=== PATIENT | male | born 1970 | race Two or more races ===

== ENCOUNTER 2024-06-12 22:41 | Emergency (ER) | payer MEDICAID, SELFPAY ==
[2024-06-12 22:41] VITALS: BMI 32.3
[2024-06-12 22:49] VITALS: BP 162/98; PULSE 72; RESP 18; TEMP 37.3; O2SAT 95
--- NOTE | 2024-06-12 22:56 | XR_ITS ---
Examination: CT cervical spine without contrast 2-D sagittal reconstructions 2-D coronal reconstructions 3-D reconstructions. Exam date and time:June 12, 2024 11:19 PM Indications: Patient fell off a truck 2 hours ago with injury to the neck, neck pain CTDI:vol (mGy) 15.06 DLP: (mGycm) 423 Technique: Multiple 2 mm axial sections of the cervical spine have been obtained. The coronal and sagittal reconstructions have been obtained. 3-D reconstructions have been obtained. Low dose protocols were performed. One or more of the following dose reduction techniques were used; automated exposure control, adjustment of the mA and/or KV according to patient size, use of iterative reconstruction technique. Findings: Axial sections demonstrate intact base of the skull. C1 exhibit satisfactory relationship to the odontoid. No acute cervical vertebral body fracture seen. Alignment posterior spinous processes satisfactory. Impression: No acute cervical fracture.
--- NOTE | 2024-06-12 22:56 | XR_ITS ---
Examination: CT brain head without contrast. 2-D sagittal coronal reconstructions Date and time of exam:June 12, 2024 1118 hrs. Indications: Patient fell off a back of the tract today with injury to the head, head pain CTDI: vol (mGy):55 DLP: (mGycm):1175 Technique: Multiple CT axial sections of the brain have been obtained, 5 mm slice thickness. Contrast has not been administered. 2-D sagittal, coronal reconstructions have been obtained Low dose protocols were performed. One or more of the following dose reduction techniques were used; automated exposure control, adjustment of the mA and/or KV according to patient size, use of iterative reconstruction technique. Findings: No significant ventricular enlargement. Intra-axial or extra-axial hemorrhage density is not seen. No mass effect or midline shift Basal cisterns are not remarkable. Fourth ventricle is midline. Cranial vault intact. Impression: Negative for acute hemorrhage, mass effect or midline shift
--- NOTE | 2024-06-12 22:56 | XR_ITS ---
Examination: PA lateral chest 2 views Technique: Upright PA lateral chest 2 views Exam date and time: June 12, 2024 1104 hrs. Comparison December 20, 2022 Indications: Chest pain today. Findings: Normal heart size Mild ectasia thoracic aorta. No pneumonia or pulmonary edema On the lateral view possible 17 mm pulmonary nodule, which may be in the left perihilar region Impression: No pneumonia or pulmonary edema On the lateral view possible 17 mm pulmonary nodule overlying the cardiac contour, recommend AP lordotic chest follow-up
--- NOTE | 2024-06-12 22:57 | PD.EDRME ---
Rapid Medical Screening Exam RME Arrival date/time: 06/12/24 22:41 54-year-old male presents emergency department complaining of head and neck pain after falling off back of tailgate from truck. Chief Complaint: Neck Pain/Injury Time Seen by Provider: 06/12/24 22:51 Vital signs: Vital Signs Temperature 99.1 F 06/12/24 22:49 Pulse Rate 72 06/12/24 22:49 Respiratory Rate 18 06/12/24 22:49 Blood Pressure 162/98 H 06/12/24 22:49 Pulse Oximetry (%) 95 06/12/24 22:49 Oxygen Delivery Method Room Air 06/12/24 22:49 Vital signs reviewed by provider: Yes
--- NOTE | 2024-06-13 00:21 | PD.EDNECK ---
ED Neck Injury Pain RME/HPI General Chief Complaint: Neck Pain/Injury Stated Complaint: NECK PAIN S/P FALL Time Seen by Provider: 06/12/24 22:51 Source: patient Arrival date/time: 06/12/24 22:41 54-year-old male presents emergency department complaining of head and neck pain after falling off back of tailgate from truck. Patient reports also suffered abrasion to top of scalp from fall. Patient denies any LOC. Patient reports is up-to-date with tetanus vaccine. Mode of arrival: ambulatory Limitations: no limitations RME / HPI RME / HPI Narrative: 06/12/24 22:41 54-year-old male presents emergency department complaining of head and neck pain after falling off back of tailgate from truck. Related Data Home Medications ?Medication ?Instructions ?Recorded ?Confirmed lisinopril 40 mg tablet 40 mg PO QDAY #0 tabs 02/13/15 12/10/23 Previous Rx's ?Medication ?Instructions ?Recorded acetaminophen 650 mg 650 mg PO Q8H PRN fever or pain 07/22/21 tablet,extended release #30 tabs ibuprofen 600 mg tablet 600 mg PO Q8H PRN fever or pain 07/22/21 #30 tabs neomycin-bacitracn Zn-polymyx 3.5 1 applicatio topical BID #15 grams 07/22/21 mg-400 unit-5,000 unit/gram top oint (Triple Antibiotic) celecoxib 200 mg capsule 200 mg PO bid #60 caps 09/14/23 meloxicam 7.5 mg tablet 7.5 mg PO QDAY #10 tabs 11/09/23 bacitracin 500 unit/gram topical 1 applic topical Q8H #14 grams 06/13/24 ointment Allergies Allergy/AdvReac Type Severity Reaction Status Date / Time No Known Allergies Allergy Verified 06/12/24 22:44 Review of Systems Review of Systems Systems Reviewed: All systems reviewed, normal except as documented Constitutional Constitutional: Reports system reviewed and no additional complaints, except as documented, Denies body ache(s), Denies chills, Denies fever(s) and Reports headache(s) Eyes Eyes: Reports system reviewed and no additional complaints, except as documented and Denies change in vision ENT Ears, Nose, Mouth, and Throat: Reports system reviewed and no additional complaints, except as documented, Denies disequilibrium, Denies dizziness, Reports headache(s), Reports neck pain, Denies sore throat and Denies vertigo Cardiovascular Cardiovascular: Reports system reviewed and no additional complaints, except as documented, Denies chest pain and Denies dyspnea Respiratory Respiratory: Reports system reviewed and no additional complaints, except as documented, Denies chest congestion, Denies cough and Denies dyspnea Gastrointestinal Gastrointestinal: Reports system reviewed and no additional complaints, except as documented, Denies abdominal pain, Denies nausea and Denies vomiting Musculoskeletal Musculoskeletal: Reports system reviewed and no additional complaints, except as documented, Denies abnormal gait, Reports arthralgias and Reports neck pain Integumentary/Breasts Skin/Breast: Reports system reviewed and no additional complaints, except as documented, Denies erythema, Denies rash and Denies wounds Neurologic Neurologic: Reports system reviewed and no additional complaints, except as documented, Denies abnormal gait, Denies disequilibrium, Denies dizziness, Reports headache(s) and Denies vertigo Past Medical History Past Medical History NEUROLOGIC: Negative Neurological Disorders or Seizures CARDIAC: Positive Cardiac Disorders and Hypertension; Negative Congestive Heart Failure RESPIRATORY: Negative Chronic Obstructive Pulmonary Disease (COPD) GASTROINTESTINAL: Negative Gastrointestinal Disorders GENITOURINARY: Negative Genitourinary Disorders or Renal Disease MUSCULOSKELETAL: Negative Musculoskeletal Disorders ENDOCRINE: Negative Endocrine Disorders, Diabetes Mellitus Type 1 or Diabetes Mellitus Type 2 HEMATOLOGIC: Negative Blood Disorders OTHER HISTORY: Negative Blood Transfusions, Blood Transfusion Reaction, Anesthesia Reactions or Cancer Family History FAMILY HISTORY: Positive Family Cancer Social History SMOKING STATUS: Never smoker ED Exam General Limitations: Present no limitations General appearance: Present alert and in no apparent distress Head Head exam: Present atraumatic Expanded Head Exam Head exam physical: Present abrasion Head image: 1. Superficial abrasion Eye Eye exam: Present normal appearance, PERRL and EOMI ENT ENT exam: Present normal exam, normal oropharynx and mucous membranes moist Neck Neck exam: Present normal inspection, full ROM and trachea midline Chest Chest inspection: Present normal inspection and symmetric chest wall rise Respiratory Respiratory exam: Present normal lung sounds bilaterally Cardiovascular Cardiovascular exam: Present regular rate, normal rhythm and normal heart sounds Abdominal Exam Abdominal exam: Present soft and normal bowel sounds Extremities Exam Extremities exam: Present normal inspection and full ROM Back Exam Back exam: Present normal inspection and full ROM Neurological Exam Neurological exam: Present alert, oriented X3, CN II-XII intact and normal gait Psychiatric Psychiatric exam: Present normal affect and normal mood Skin Skin exam: Present warm, dry, intact and normal color Course Quality Measures none Orders Category Date Time Status CT cervical spine wo con Stat Exams 06/12/24 22:[address] head/brain wo con Stat Exams 06/12/24 22:56 Completed XR chest 2V Stat Exams 06/12/24 22:56 Completed Vital Signs Vital signs: Vital Signs Temperature 99.1 F 06/12/24 22:49 Pulse Rate 72 06/12/24 22:49 Respiratory Rate 18 06/12/24 22:49 Blood Pressure 162/98 H 06/12/24 22:49 Pulse Oximetry (%) 95 06/12/24 22:49 Oxygen Delivery Method Room Air 06/12/24 22:49 95% room air within normal limits Neck Pain MDM Narrative MDM Narrative:: 54-year-old male presents emergency department complaining of head and neck pain after falling off back of tailgate from truck. Patient reports also suffered abrasion to top of scalp from fall. Patient denies any LOC. CT of head and neck were unremarkable. Chest x-ray was unremarkable. Patient has superficial abrasion to top of scalp. Patient discharged on bacitracin cream to apply and instructed to have follow-up with primary care provider upon discharge and return to emergency department for any worsening symptoms or as needed. Patient data External records reviewed:: [facility] previous records Clinical information provided by:: patient Social determinants that could affect healthcare access:: none Patient has the following chronic illnesses:: See chart How is presenting disease/condition affected by chronic disease/condition?: uneffected by Evaluation data The following diagnostics were reviewed and interpreted by me:: radiology exam(s) Lab and/or radiology exams considered but not ordered:: Ordered Interpretation Summary: Interpreted by me Medications / Prescriptions Medications or Prescriptions considered but not ordered:: N/A Medication administrations:: N/A Consultations Consultation(s) initiated? (list below): No Diagnosis Neck Differential Diagnosis: whiplash injury to neck, closed subluxation of cervical spine and strain of neck muscle Most likely diagnosis given after review of the tests above:: Abrasion of scalp Fall Admission Indicated Admission indicated?: not indicated Admission Request Was there a request for admission?: No Disposition Plan Disposition Plan: Discharge Discharge Attestation Discharge Attestation: The patient and all family members were given an opportunity to ask questions and understood the discharge instructions. Discharge instructions specifically effects, indications for sooner follow up or return to the emergency department, and the expected course of current diagnosis. Patient condition: Stable Discharge Plan Plan Patient Disposition: HOME (Self Care) Disposition Comment: Stable Prescriptions/Referrals Prescriptions/Med Rec: New bacitracin 500 unit/gram ointment 1 applic topical Q8H Qty: 14 0RF No Action celecoxib 200 mg capsule 200 mg PO bid Qty: 60 2RF meloxicam 7.5 mg tablet 7.5 mg PO QDAY Qty: 10 0RF lisinopril 40 MG tablet 40 mg PO QDAY Qty: 0 acetaminophen 650 mg tablet extended release 650 mg PO Q8H PRN (Reason: fever or pain) Qty: 30 0RF Rx Instructions: swallow whole; do not chew/break/dissolve/open Triple Antibiotic 3.5mg-400 unit- 5,000 unit/gram ointment 1 applicatio TOPICAL BID Qty: 15 0RF ibuprofen 600 mg tablet 600 mg PO Q8H PRN (Reason: fever or pain) Qty: 30 0RF Referrals: Arnulfo Weber MD [Primary Care Provider] - In 1 week Problem List Clinical Impression: Abrasion of scalp, Fall Patient/Caregiver Discharge Instructions Education Materials: First Aid: Head Injuries, ED Abrasions Additional Instructions: Wash abrasion with warm water and soap. Apply medication as prescribed. Follow-up with primary care provider in 2 to 3 days. Return to emergency department for any worsening symptoms or as needed. Print Language: Tristanian Stand Alone Forms: Princess Award Info., Patient Portal Info Letter PA/WILLIE Supervising Physician PA/WILLIE Supervising Physician: Dr. Hardin
== END 2024-06-13 00:33 | disposition home or self-care (01) ==
PROVIDERS: Emergency Provider Emergency Medicine; PCP Family Medicine
DX: S00.01XA Abrasion of scalp, initial encounter (principal); S19.9XXA Unspecified injury of neck, initial encounter; R07.9 Chest pain, unspecified; W17.89XA Other fall from one level to another, initial encounter; Y92.812 Truck as the place of occurrence of the external cause
CPT/HCPCS: 70450; 71046; 72125; 99284

== ENCOUNTER → 2024-07-28 | Outpatient (CLI) | payer MEDICAID, SELFPAY ==
--- NOTE | 2024-07-28 08:00 | XR_ITS ---
MRI shoulder, left, without contrast. Date and time: July 28, 2024 0759 hours INDICATIONS: Left shoulder pain beginning 7 months ago, prior shoulder surgery 2013 Technique: Multiple axial, sagittal and coronal sections of the shoulder have been obtained. Siemens high-resolution 1.5 Mae MRI scanner is utilized. Axial fat-suppressed sections, TR 2350, TE 18 T2-weighted coronal fat-saturated images, TR 3500, TE 7100 T1-weighted coronal images, TR 500, TE 15 T2-weighted sagittal fat-saturated images, TR 3500, TE 57 T1-weighted sagittal sections, TR 504, TE 13. Findings: Severe magnetic susceptibility artifacts are present surrounding the humeral head Findings are quite suspicious for 3 cm full-thickness rotator cuff tear No labral tear is noted Subscapularis insertion is intact. Subscapularis bursa is not seen. Long head of the biceps is in the bicipital groove. No definite tear of the biceps superior labral anchor is seen. Retraction of the musculotendinous junction of the rotator cuff is not seen . Tendinosis pattern is moderate. Distance between the acromium and humeral head is 3 mm Atrophy of the supraspinatus muscle is severe. Atrophy of the infraspinatus muscle is moderate. Sagittal sections demonstrate a horizontal acromion. Acromioclavicular joint demonstrates moderate osteoarthritis. Osacromiale is not identified. Labral margins appear intact. Bony glenoid fossa on the sagittal sections does not demonstrate osseous defect. Occult fracture or area of avascular necrosis is not seen. Acromioclavicular joint separation is not visible. Defect in the posterolateral margin of the humeral head is not seen Impression: Severe magnetic susceptibility artifacts about the humeral head Recommend this patient return for MR arthrography followed by post intra-articular MR contrast images of the shoulder to confirm large full-thickness rotator cuff tear
--- NOTE | 2024-07-28 08:30 | XR_ITS ---
Examination: MRI left humerus, without contrast Date and time of exam: July 28, 2024 0759 hours INDICATIONS: Left shoulder and upper pain beginning 7 months ago, history prior shoulder surgery and tendon repair Technique: Multiple axial sagittal and coronal images of the left humerus have been obtained with the Siemens high-resolution 1.5 Mae MRI scanner. Images obtained include T2-weighted fat-suppressed sagittal sections, TR 3500, TE 46, T2 weighted coronal fat suppressed images, TR 3050, TE 84, T2-weighted transverse fat suppressed images, TR 3260, TE 63, proton density transverse images, TR 4720 TE 46, and T1 weighted coronal images, TR 560, TE 13. Findings: Long head of the biceps in the bicipital groove Numerous magnetic susceptibility artifacts adjacent to the humeral head Also extensive artifacts along the entire lateral margin of the humerus intact arm No definite retraction of the long head of the biceps although these images do not extend to the elbow and radial tuberosity IMPRESSION: The entire study is severely degraded by artifacts at the level of the humeral head along the entire humeral shaft Long head of the biceps is in the bicipital groove on the upper images Consider MRI elbow follow-up to confirm normal insertion of the long head of the biceps into the radial tuberosity
== END | disposition home or self-care (01) ==
PROVIDERS: PCP Family Medicine; Referring Provider Internal Medicine; Visit Provider Internal Medicine
DX: M25.812 Other specified joint disorders, left shoulder (principal); S46.212S Strain of muscle, fascia and tendon of other parts of biceps, left arm, sequela; X58.XXXS Exposure to other specified factors, sequela
CPT/HCPCS: 73218; 73221

== ENCOUNTER 2024-12-07 14:46 | Outpatient (AMB) | payer MEDICAID, SELFPAY ==
[2024-12-07 16:07] VITALS: BP 131/81; PULSE 72; RESP 18; TEMP 36.7; O2SAT 98; BMI 31.8
--- NOTE | 2024-12-07 16:07 | ORTHONT_ITS ---
Vital signs 12/07/24 16:07 Height 1.73 m Height Method Stated Weight 95.254 kg Weight Measurement Method Standing Scale BMI 31.8 BP 131/81 H Blood Pressure Source Automatic Cuff Blood Pressure Location Left Upper Arm Position Sitting Respiration 18 Pulse 72 Pulse Source Monitor Temp 98.1 F Temp Source Temporal Artery Scan Pulse Oximetry (%) 98 Oxygen Delivery Method Room Air Med/Allergies Allergies & Medications Allergies No Known Allergies Allergy (Verified 12/07/24 16:08) Medication Reconciliation lisinopril 40 mg tablet 40 mg PO QDAY #0 tabs 02/13/15 [History Confirmed 12/07/24] acetaminophen 650 mg tablet,extended release 650 mg PO Q8H PRN fever or pain #30 tabs 07/22/21 [Rx Confirmed 12/07/24] ibuprofen 600 mg tablet 600 mg PO Q8H PRN fever or pain #30 tabs 07/22/21 [Rx C onfirmed 12/07/24] neomycin-bacitracn Zn-polymyx 3.5 mg-400 unit-5,000 unit/gram top oint (Triple Antibiotic) 1 applicatio topical BID #15 grams 07/22/21 [Rx Confirmed 12/07/24] celecoxib 200 mg capsule 200 mg PO bid #60 caps 09/14/23 [Rx Confirmed 12/07/24] bacitracin 500 unit/gram topical ointment 1 applic topical Q8H #14 grams 06/13/24 [Rx Confirmed 12/07/24] meloxicam 7.5 mg tablet 7.5 mg PO QDAY #60 tabs 12/07/24 [Rx Confirmed 12/07/24] Exam Exam Patient is in no acute distress and is cooperative with the examination today. Breathing is nonlabored. In no respiratory distress. Patient has no paraspinal tenderness. Spinal deformity [cannot] be appreciated. The gait of the patient is [nonantalgic] Bilateral extremities were evaluated and demonstrates sensation intact to light touch. Palpable pedal pulses are present. No significant edema is present. Bilateral knees were examined and the patient has full strength and range of motion.. The left hip was examined. Patient was able to flex to 90 degrees, adduct to 30 degrees, abduct to 40 degrees, internally rotate to 20 degrees, and externally rotate to 20 degrees. Patient has a negative logroll. Stincfield is negative. The patient is nontender diffusely to touch. The right hip was examined. Patient was able to flex to [90] degrees, adduct to [30] degrees, abduct to [40] degrees, internally rotate to [20] degrees, and externally rotate to [20] degrees. Patient has a Positivelogroll. The stinchfield is [negative]. X-rays demonstrate moderate osteoarthritis of the right hip And mild arthritis of the left hip Assessment and Plan Problem List (1) Unilateral primary osteoarthritis, right hip: Status: Acute Plan: guera is a 53-year-old male with moderate right hip osteoarthritis. We discussed nonoperative options. The pain is starting to bother him. We discussed anti-inflammatories, and injections. Did well with the previous cortisone injections and would like new ones. We will order cortisone injections as he received almost a year relief with the last bilateral hip intra-articular injections (2) Right hip pain: Status: Acute Office Procedures GNS Level of Care Nursing/Assessment Patient Status: Established Patient Nursing Assessment/Reassesment: Medication Reconciliation, Update PMH in EMR and Vital Signs Coordination of Care: Complex Care and Chronic Disease 1-5, Education Complex Pt/Fam, Consent,records obtained, informed consent, Results/Orders obtained and Staff clarify orders Established Patient Charge Established Patient Point Assignment: 95 Established Patient Point Charge: EP Level 3 (80-115) MA Intake Visit Data Collection New Patient or Established: Established Patient (seen at [facility] within 3 years) Reason for Visit:: FOLLOW UP Seen by Clinical Staff ONLY (RN/MA): No PCP or OBGYN visit in last 3 months: Yes Hx Now: No Do You Feel Safe at Home: Yes Authorities Contacted: N/A Questionairres Past Medical History Past Medical History Have you ever been diagnosed with any of the following: Neurological Problems Seizures: No Cardiology Problems Congestive Heart Failure: No Hypertension: Yes Respiratory Problems Chronic Obstructive Pulmonary Disease (COPD): No Smoking: No Smoking Exposure: No Genital/Urinary Problems Renal Disease: No Endocrine Problems Diabetes Mellitus Type 1: No Diabetes Mellitus Type 2: No Other Problems Blood Transfusions: No Blood Transfusion Reaction: No Anesthesia Reactions: No Cancer: No Subjective Visit Visit for: follow up visit and hip Immunization / Flu Flu Vaccine in the Last 12 Months: No Flu Vaccine Exclusion Criteria: No Exclusion Criteria History of Present Illness Chief complaint: Bilateral hip arthritis Patient is a 53-year-old male with right hip pain that is in the groin and radiates to the knee. We injected him approximately 1 year ago with interventional radiology. He reports that this took away the pain completely. He is doing well with the weight new injections today as it wore off 1 week ago. We will order bilateral hip injections Pain Pain level (0-10): 7 Pain duration: ON AND OFF Pain location: inside (medial) and anterior Pain quality: sharp, dull and aching Pain timing: night and increases with activity Associated signs & symptoms: stiffness Ambulatory data Ambulatory device: none Treatments Improvement with previous injections: No Improvement with PT: No Improvement with NSAIDS: no Review of Systems Review of Systems: All systems negative unless otherwise noted in HPI.
== END 2024-12-07 16:19 | disposition home or self-care (01) ==
PROVIDERS: PCP Family Medicine; Referring Provider Family Medicine; Supervising Provider Orthopaedic Surgery Adult Reconstructive Orthopaedic Surgery; Visit Provider Orthopaedic Surgery Adult Reconstructive Orthopaedic Surgery
DX: M16.11 Unilateral primary osteoarthritis, right hip (principal); M25.551 Pain in right hip; I10 Essential (primary) hypertension
CPT/HCPCS: 99213; G0463

== ENCOUNTER → 2025-01-01 | Outpatient (CLI) | payer MEDICAID, SELFPAY ==
--- NOTE | 2025-01-01 13:00 | XR_ITS ---
Examination: Steroid injection right hip joint with imaging guidance Fluoroscopy AP right hip single view. Exam date and time: January 01, 2025 1334 hours INDICATIONS: Diagnosis right hip unilateral osteoarthritis hip pain years Informed consent provided. Technique: A timeout was completed verifying correct patient, procedure, site, positioning. The patient was placed in supine position appropriate for the steroid injection The patient's site was prepped and draped in sterile fashion 5 cc 1% lidocaine administered locally for anesthesia. Sterile drape applied, maximum barrier sterile technique. Utilizing fluoroscopic guidance, 23-gauge needle placed in the right hip joint 1 cc Kenalog 40 in 5 cc 0.25% Marcaine introduced into the right hip joint The patient was in satisfactory and stable condition on completion of the procedure Attending radiologist was present for the entire procedure Estimated blood loss 0 cc. Impression: Successful steroid injection right hip joint with imaging guidance AP right hip single view Fluoroscopy 0.2 minute radiation dose 728 milligray .
--- NOTE | 2025-01-01 13:00 | XR_ITS ---
Examination: Steroid injection left hip joint with imaging guidance Fluoroscopy AP left hip single view INDICATIONS: Diagnosis left hip unilateral osteoarthritis hip pain years. Exam date and time: January 01, 2025 1334 hours Informed consent provided. Technique: A timeout was completed verifying correct patient, procedure, site, positioning. The patient was placed in supine position appropriate for the steroid injection The patient's site was prepped and draped in sterile fashion 5 cc 1% lidocaine administered locally for anesthesia. Sterile drape applied, maximum barrier sterile technique. Utilizing fluoroscopic guidance, 23-gauge needle placed in the left hip joint 1 cc Kenalog 40 in 5 cc 0.25% Marcaine introduced into the left hip joint The patient was in satisfactory and stable condition on completion of the procedure Attending radiologist was present for the entire procedure Estimated blood loss 0 cc. Impression: Successful steroid injection left hip joint with imaging guidance Fluoroscopy 0.2 minute radiation dose 11.28 milligray 1 spot fluoroscopic left hip film .
[2025-01-01] MEDS: TRIAMCINOLONE ACET INJ 40 MG/ML VIAL 80 MG IM (14:22)
[2025-01-01] MEDS: LIDOCAINE INJ PF 1% 30 ML VIAL INFL (14:23)
== END | disposition home or self-care (01) ==
PROVIDERS: PCP Family Medicine; Referring Provider Orthopaedic Surgery Adult Reconstructive Orthopaedic Surgery; Visit Provider Orthopaedic Surgery Adult Reconstructive Orthopaedic Surgery
DX: M16.0 Bilateral primary osteoarthritis of hip (principal)
CPT/HCPCS: 20610; 77002; J3301; J3490